=== PATIENT | female | born 1980 | race African-American/Black ===

== ENCOUNTER 2020-08-08 04:45 | Day surgery (SDC) | payer BC ==
[2020-08-03 13:19] VITALS: BMI 29.7
[2020-08-08] MEDS ORDERED: MIDAZOLAM HCL 2 MG/2 ML SINGLE DOSE VIAL IVPUSH ONE ×2 (10:55→11:35)
[2020-08-08] MEDS ORDERED: KETOROLAC TROMETHAMINE 15 MG/ML VIAL IVPUSH ONE ×2 (12:15→12:38)
[2020-08-08] MEDS ORDERED: HYDROmorphone HCl 2 MG/ML VIAL ONE (13:32)
[2020-08-08] MEDS ORDERED: HYDROmorphone *PCA* 10MG/50ML DISP.SYRIN ONE (13:53)
[2020-08-08] MEDS ORDERED: HYDROmorphone HCl 2 MG/ML VIAL IVPUSH ONE (14:45)
[2020-08-08] MEDS ORDERED: HYDROmorphone *PCA* 10MG/50ML DISP.SYRIN PCA SCH (14:45)
[2020-08-08] MEDS ORDERED: ONDANSETRON 4 MG/2 ML VIAL ONE (16:50)
[2020-08-08] MEDS: ONDANSETRON 4 MG/2 ML VIAL IVPUSH PRN ×2 (16:55→22:24)
[2020-08-08] MEDS: ACETAMINOPHEN 1000 MG/100 ML VIAL (NON FORMULARY) IVPB PRN ×2 (16:55→23:43)
[2020-08-08] MEDS: SODIUM CHLORIDE 1,000 ML IV SCH (18:54)
[2020-08-09] MEDS: SODIUM CHLORIDE 1,000 ML IV SCH (02:14)
[2020-08-09] MEDS: ACETAMINOPHEN 1000 MG/100 ML VIAL (NON FORMULARY) IVPB PRN (05:46)
[2020-08-09] MEDS: ONDANSETRON 4 MG/2 ML VIAL IVPUSH PRN ×2 (06:26→09:56)
[2020-08-09 07:31] LABS: HEMATOCRIT 33.6 % (32.4-45.2); HEMOGLOBIN 11.5 GM/dL (10.7-15.3); MCH 31.4 pg (25.7-33.7); MCHC 34.2 g/dl (32.0-36.0); MEAN CELL VOLUME 91.9 fl (80-96); MEAN PLT VOLUME 7.9 fl (7.5-11.1); PLATELET COUNT 187 K/MM3 (134-434); RBC 3.66 M/mm3 (3.60-5.2); RDW 12.9 % (11.6-15.6); WHITE BLOOD COUNT 7.1 K/mm3 (4.0-10.0)
[2020-08-09 07:52] LABS: POTASSIUM 4.7 mmol/L (3.5-5.1)
[2020-08-09 07:54] LABS: CALCIUM 8.3 mg/dL (8.5-10.1)
[2020-08-09 07:55] LABS: ALBUMIN 3.3 g/dl (3.4-5.0); BLOOD UREA NITROGEN 11.4 mg/dL (7-18)
[2020-08-09 07:58] LABS: CREATININE 0.7 mg/dL (0.55-1.3)
[2020-08-09 08:00] LABS: BILIRUBIN,TOTAL 0.6 mg/dL (0.2-1); TOT PROT 6.8 g/dl (6.4-8.2)
[2020-08-09] MEDS ORDERED: ACETAMINOPHEN 325 MG TABLET (FP) PO PRN (13:45)
[2020-08-09] MEDS ORDERED: oxyCODONE HCL 5 MG TABLET PO PRN (13:45)
[2020-08-09] MEDS ORDERED: PCA PUMP NR ONE (13:51)
[2020-08-09 15:28] VITALS: BP 106/59; PULSE 79
[2020-08-09 15:31] VITALS: TEMP 98.9
== END 2020-08-09 18:47 | disposition home or self-care (01) ==
LOC: JRADIR 04:45 → SUATTDRO 04:45 → JASUSAT 04:45 → J7W 17:28 → JASUSAT 08-09 18:47
PROC: 04LE3DT Occlusion of Right Uterine Artery with Intraluminal Device, Percutaneous Approach (ICD-10-PCS; 2020-08-08)
PROC: 04LF3DU Occlusion of Left Uterine Artery with Intraluminal Device, Percutaneous Approach (ICD-10-PCS; principal; 2020-08-08 10:00)
DX: D25.9 Leiomyoma of uterus, unspecified (principal)
CPT/HCPCS: 36415; 37243; 80053; 84703; 85027; 94010; 94760; C1887; J0131

== ENCOUNTER 2020-08-11 11:45 | Observation (INO) | payer BC ==
[2020-08-11] MEDS ORDERED: SODIUM CHLORIDE 1,000 ML IV STA (13:57)
[2020-08-11] MEDS ORDERED: KETOROLAC TROMETHAMINE 30 MG/1 ML VIAL IVPUSH ONE (13:57)
[2020-08-11] MEDS ORDERED: KETOROLAC TROMETHAMINE 30 MG/1 ML VIAL ONE (14:09)
[2020-08-11] MEDS ORDERED: morphine CARPU-JECT 4 MG/1 ML DISP.SYRIN IVPUSH ONE (14:14)
[2020-08-11 14:39] LABS: BASO % 0.5 % (0-2.0); EOS % 0.1 % (0-4.5); HEMATOCRIT 40.1 % (32.4-45.2); HEMOGLOBIN 13.2 GM/dL (10.7-15.3); LYMPH % 6.4 % (8-40); MCH 30.4 pg (25.7-33.7); MCHC 32.9 g/dl (32.0-36.0); MEAN CELL VOLUME 92.2 fl (80-96); MONO % 10.5 % (3.8-10.2); NEUT % 82.5 % (42.8-82.8); PLATELET COUNT 232 K/MM3 (134-434); RBC 4.35 M/mm3 (3.60-5.2); RDW 13.1 % (11.6-15.6); WHITE BLOOD COUNT 11.7 K/mm3 (4.0-10.0)
[2020-08-11] MEDS ORDERED: morphine SULFATE 4 MG/ML VIAL ONE (14:52)
[2020-08-11 15:02] LABS: ALBUMIN 3.8 g/dl (3.4-5.0); CALCIUM 9.6 mg/dL (8.5-10.1)
[2020-08-11 15:03] LABS: BLOOD UREA NITROGEN 16.4 mg/dL (7-18)
[2020-08-11 15:06] LABS: CREATININE 0.9 mg/dL (0.55-1.3)
[2020-08-11 15:07] LABS: BILIRUBIN,TOTAL 1.7 mg/dL (0.2-1); TOT PROT 8.3 g/dl (6.4-8.2)
[2020-08-11] MEDS ORDERED: ONDANSETRON 4 MG/2 ML VIAL IVPUSH ONE (15:49)
[2020-08-11 18:22] LABS: EPI CELLS 8 /uL (0-25.1); HYALINE CASTS 1 /uL (0-3.1); URINE BACTERIA 438 /uL (0-1359); URINE BILIRUBIN 1+ (NEGATIVE); URINE COLOR ORANGE; URINE GLUCOSE (UA) NEGATIVE (NEGATIVE); URINE KETONE 3+ (NEGATIVE); URINE LEUK ESTERASE 3+ (NEGATIVE); URINE NITRITE POSITIVE (NEGATIVE); URINE PROTEIN 2+ (NEGATIVE); URINE WBC 9344 /uL (0-25.8)
[2020-08-11] MEDS ORDERED: CEFTRIAXONE 1 GM in DEXTROSE 5%-WATER - 50 ML IVPB ONE (18:25)
[2020-08-11 18:28] LABS: HCG,QUALITATIVE URINE Negative
[2020-08-11 19:05] LABS: URINE RBC 618.4 /uL (0-23.9); YEAST NEGATIVE (NEGATIVE)
[2020-08-11 19:06] LABS: URINE APPEARANCE TURBID
[2020-08-11] MEDS ORDERED: ONDANSETRON 4 MG/2 ML VIAL ONE (19:23)
[2020-08-11] MEDS ORDERED: CEFTRIAXONE 1 GM/50 ML BAG ONE (19:23)
[2020-08-11] MEDS ORDERED: oxyCODONE HCL 5 MG TABLET PO PRN (21:43)
[2020-08-11] MEDS ORDERED: morphine SULFATE 4 MG/ML VIAL IVPUSH PRN (21:50)
[2020-08-11] MEDS ORDERED: ACETAMINOPHEN 325 MG TABLET (FP) ONE (21:51)
[2020-08-11] MEDS ORDERED: PANTOPRAZOLE 40 MG TABLET ONE (21:51)
[2020-08-11] MEDS: SODIUM CHLORIDE 1,000 ML IV SCH (21:58)
[2020-08-11] MEDS: PANTOPRAZOLE 40 MG TABLET PO SCH (21:58)
[2020-08-11] MEDS: ACETAMINOPHEN 325 MG TABLET (FP) PO PRN (22:00)
[2020-08-12] MEDS ORDERED: morphine SULFATE 4 MG/ML VIAL ONE ×4 (00:27→18:06)
[2020-08-12] MEDS ORDERED: HEPARIN NA (PORCINE) 5,000 UNITS/ML 1ML VIAL SQ SCH (10:00)
[2020-08-12] MEDS ORDERED: PANTOPRAZOLE SODIUM 40 MG VIAL ONE (10:12)
[2020-08-12] MEDS ORDERED: CEFTRIAXONE 1 GM/50 ML BAG ONE (10:12)
[2020-08-12] MEDS: PANTOPRAZOLE 40 MG TABLET PO SCH (10:25)
[2020-08-12] MEDS: CEFTRIAXONE 1 GM in DEXTROSE 5%-WATER - 50 ML IVPB SCH (10:25)
[2020-08-12] MEDS: morphine SULFATE 4 MG/ML VIAL IVPUSH PRN ×2 (10:33→18:11)
[2020-08-12 12:01] LABS: ALBUMIN 2.9 g/dl (3.4-5.0)
[2020-08-12 12:03] LABS: MAGNESIUM 1.9 mg/dL (1.8-2.4)
[2020-08-12 12:04] LABS: CREATININE 0.7 mg/dL (0.55-1.3)
[2020-08-12 12:05] LABS: PHOSPHOROUS 3.5 mg/dL (2.5-4.9)
[2020-08-12 12:06] LABS: BILIRUBIN,TOTAL 0.9 mg/dL (0.2-1); TOT PROT 6.4 g/dl (6.4-8.2)
[2020-08-12 17:11] LABS: BILIRUBIN,DIRECT 0.2 mg/dL (0.0-0.2)
[2020-08-12] MEDS ORDERED: ACETAMINOPHEN 325 MG TABLET (FP) ONE (20:03)
[2020-08-12] MEDS: ACETAMINOPHEN 325 MG TABLET (FP) PO PRN (20:06)
[2020-08-12 20:45] LABS: BASO % 0.4 % (0-2.0); EOS % 0.2 % (0-4.5); HEMATOCRIT 33.5 % (32.4-45.2); HEMOGLOBIN 11.1 GM/dL (10.7-15.3); LYMPH % 8.6 % (8-40); MCH 30.5 pg (25.7-33.7); MEAN CELL VOLUME 92.2 fl (80-96); MEAN PLT VOLUME 8.4 fl (7.5-11.1); MONO % 10.9 % (3.8-10.2); NEUT % 79.9 % (42.8-82.8); PLATELET COUNT 214 K/MM3 (134-434); RBC 3.63 M/mm3 (3.60-5.2); RDW 12.9 % (11.6-15.6); WHITE BLOOD COUNT 9.7 K/mm3 (4.0-10.0)
[2020-08-12] MEDS: SODIUM CHLORIDE 1,000 ML IV SCH (22:01)
[2020-08-13] MEDS: morphine SULFATE 4 MG/ML VIAL IVPUSH PRN ×3 (02:14→22:02)
[2020-08-13] MEDS: ACETAMINOPHEN 325 MG TABLET (FP) PO PRN ×3 (04:54→16:35)
[2020-08-13 07:16] VITALS: BMI 32.1
[2020-08-13 07:59] LABS: HEMATOCRIT 30.4 % (32.4-45.2); HEMOGLOBIN 10.2 GM/dL (10.7-15.3); MCH 30.9 pg (25.7-33.7); MCHC 33.5 g/dl (32.0-36.0); PLATELET COUNT 218 K/MM3 (134-434); WHITE BLOOD COUNT 7.7 K/mm3 (4.0-10.0)
[2020-08-13 08:01] LABS: ALBUMIN 2.7 g/dl (3.4-5.0); BLOOD UREA NITROGEN 13.1 mg/dL (7-18); CALCIUM 7.9 mg/dL (8.5-10.1)
[2020-08-13 08:05] LABS: CREATININE 0.7 mg/dL (0.55-1.3)
[2020-08-13 08:06] LABS: BILIRUBIN,TOTAL 0.8 mg/dL (0.2-1); TOT PROT 6.2 g/dl (6.4-8.2)
[2020-08-13] MEDS ORDERED: DEXTROSE 5%-WATER - 50 ML IVPB ONE (09:11)
[2020-08-13] MEDS ORDERED: cefTRIAXone SODIUM 1 GM VIAL ONE (09:11)
[2020-08-13] MEDS: CEFTRIAXONE 1 GM in DEXTROSE 5%-WATER - 50 ML IVPB SCH (09:22)
[2020-08-13] MEDS: PANTOPRAZOLE 40 MG TABLET PO SCH (09:23)
[2020-08-13] MEDS: SODIUM CHLORIDE 1,000 ML IV SCH ×2 (12:00→22:09)
[2020-08-13] MEDS ORDERED: POTASSIUM CHLORIDE TABS 20 MEQ TABLET.ER (FP) PO ONE (13:43)
[2020-08-14] MEDS: ACETAMINOPHEN 325 MG TABLET (FP) PO PRN ×2 (01:08→06:06)
[2020-08-14] MEDS: SODIUM CHLORIDE 1,000 ML IV SCH (01:09)
[2020-08-14] MEDS ORDERED: DOCUSATE SODIUM 100 MG CAPSULE (FP) PO PRN (07:17)
[2020-08-14] MEDS ORDERED: LIDOCAINE 5% TOPICAL PATCH TP ONE (08:29)
[2020-08-14 08:35] LABS: BASO % 0.5 % (0-2.0); EOS % 1.8 % (0-4.5); HEMATOCRIT 29.3 % (32.4-45.2); LYMPH % 14.8 % (8-40); MCH 30.9 pg (25.7-33.7); MCHC 34.2 g/dl (32.0-36.0); MEAN CELL VOLUME 90.3 fl (80-96); MONO % 14.5 % (3.8-10.2); NEUT % 68.4 % (42.8-82.8); PLATELET COUNT 259 K/MM3 (134-434); RBC 3.25 M/mm3 (3.60-5.2); RDW 12.9 % (11.6-15.6); WHITE BLOOD COUNT 5.6 K/mm3 (4.0-10.0)
[2020-08-14] MEDS ORDERED: cefTRIAXone SODIUM 1 GM VIAL ONE (09:02)
[2020-08-14] MEDS ORDERED: DEXTROSE 5%-WATER - 50 ML IVPB ONE (09:02)
[2020-08-14] MEDS: CEFTRIAXONE 1 GM in DEXTROSE 5%-WATER - 50 ML IVPB SCH (09:07)
[2020-08-14] MEDS: PANTOPRAZOLE 40 MG TABLET PO SCH (09:08)
[2020-08-14 09:09] LABS: BLOOD UREA NITROGEN 5.8 mg/dL (7-18)
[2020-08-14 09:12] LABS: CREATININE 0.8 mg/dL (0.55-1.3)
[2020-08-14] MEDS ORDERED: BISACODYL 10 MG SUPP.RECT PR ONE (09:37)
[2020-08-14] MEDS ORDERED: ACETAMINOPHEN 1000 MG/100 ML BAG IVPB PRN (09:41)
[2020-08-14 10:49] VITALS: BP 130/77; PULSE 78; TEMP 99.1
[2020-08-14] MEDS ORDERED: LIDOCAINE PATCH REMOVAL MC ONE (22:00)
== END 2020-08-14 15:52 | disposition home or self-care (01) ==
LOC: JER 11:45 → JERBED 20:04 → J7W 08-12 20:30
PROVIDERS: ADMIT Hospitalist
PROC: 3E0337Z Introduction of Electrolytic and Water Balance Substance into Peripheral Vein, Percutaneous Approach (ICD-10-PCS; principal; 2020-08-11)
PROC: 3E03329 Introduction of Other Anti-infective into Peripheral Vein, Percutaneous Approach (ICD-10-PCS; 2020-08-11)
PROC: 3E033NZ Introduction of Analgesics, Hypnotics, Sedatives into Peripheral Vein, Percutaneous Approach (ICD-10-PCS; 2020-08-11)
PROC: 3E033GC Introduction of Other Therapeutic Substance into Peripheral Vein, Percutaneous Approach (ICD-10-PCS; 2020-08-11)
DX: N12 Tubulo-interstitial nephritis, not specified as acute or chronic (principal); D25.9 Leiomyoma of uterus, unspecified; Z98.890 Other specified postprocedural states; R63.3 Feeding difficulties; E11.9 Type 2 diabetes mellitus without complications; B96.20 Unspecified Escherichia coli [E. coli] as the cause of diseases classified elsewhere; I13.2 Hypertensive heart and chronic kidney disease with heart failure and with stage 5 chronic kidney disease, or end stage renal disease; I50.9 Heart failure, unspecified; N18.6 End stage renal disease; E11.22 Type 2 diabetes mellitus with diabetic chronic kidney disease; Z99.2 Dependence on renal dialysis; Z79.4 Long term (current) use of insulin; N39.0 Urinary tract infection, site not specified; G89.18 Other acute postprocedural pain; Z23 Encounter for immunization
CPT/HCPCS: 36415; 74177-TC; 80048; 80053; 81003; 82248; 83690; 83735; 84100; 84481; 84703; 85025; 85027; 87086; 87186; 93005; 93010; 96361; 96365; 96375; 96376; 99285-25; C9803; G0378; Q9967; U0003